=== PATIENT | female | born 1940 | race Caucasian/White ===

== ENCOUNTER 2024-02-10 15:29 | Outpatient (CLI) | payer MEDICARE | END 2024-02-10 15:30 | disposition home or self-care (01) | LOC: BICRAD 15:29 | PROVIDERS: ATTEND Internal Medicine Hematology & Oncology | DX: C54.1 Malignant neoplasm of endometrium (principal); R06.02 Shortness of breath; J90 Pleural effusion, not elsewhere classified; J98.11 Atelectasis | CPT/HCPCS: 71046 ==

== ENCOUNTER 2025-04-21 08:56 | Outpatient (CLI) | payer MEDICARE ==
[2025-04-21 09:32] LABS: Estimated GFR - POC 63.0
== END 2025-04-21 08:57 | disposition home or self-care (01) ==
LOC: CT 08:56
PROVIDERS: ATTEND Internal Medicine Hematology & Oncology
DX: C54.1 Malignant neoplasm of endometrium (principal); D73.89 Other diseases of spleen; E27.8 Other specified disorders of adrenal gland; K44.9 Diaphragmatic hernia without obstruction or gangrene
CPT/HCPCS: 36415; 71260; 74177; 82565